=== PATIENT | male | born 1985 | race Caucasian/White ===

== ENCOUNTER 2024-07-29 15:17 | Emergency (ER) | payer SELFPAY ==
--- NOTE | 2024-07-29 15:29 | ECG_ITS ---
Test Reason : HIGH BP Blood Pressure : / mmHG Vent. Rate : 072 BPM Atrial Rate : 072 BPM P-R Int : 138 ms QRS Dur : 082 ms QT Int : 372 ms P-R-T Axes : 058 068 045 degrees QTc Int : 407 ms Normal sinus rhythm with sinus arrhythmia Cannot rule out Anterior infarct , age undetermined Abnormal ECG No previous ECGs available Referred By: Conner Saunders Electronically Signed By:FERNANDEZ HUGHES
[2024-07-29 15:49] VITALS: BP 107/59; PULSE 75; RESP 16; TEMP 37.1; O2SAT 98; BMI 23.9
--- NOTE | 2024-07-29 15:49 | ED_ITS ---
HPI - General Adult General Chief complaint: General Medical Stated complaint: blood pressure issues, brain fog Time Seen by Provider: 07/29/24 16:37 Source: patient Mode of arrival: ambulatory Limitations: no limitations History of Present Illness ED Provider: Chiquis Sam PA-C HPI narrative: Patient is a 38 year old assigned male at with no reported medical history presenting to the emergency department today with brain fog and a headache. Patient states that over the last few days he has felt increased brain fog and bilateral latter day pain that is intermittent. Patient states he was concerned it was his blood pressure so he bought a blood pressure cuff to measure it at home. Patient states that his blood pressures have varied greatly at home. Patient states that he recently moved here from [place] and does not have a primary care provider. Patient denies any dizziness, lightheadedness, abdominal pain, nausea, vomiting, fever, chills, blurry vision, double vision, loss of vision, chest pain, difficulty breathing, shortness of breath, back pain, night sweats, pain with urination, increased urinary frequency, increased urinary urgency, blood in his urine or stool, syncope or a near syncopal episode, recent trauma or falls, bowel incontinence, bladder incontinence, or any other complaints at this time. Onset (ago): day(s) Exacerbating factors: none Associated symptoms: headaches Treatments prior to arrival: none Related Data Allergies Allergy/AdvReac Type Severity Reaction Status Date / Time amoxicillin Allergy Unknown Verified 07/29/24 15:53 Review of Systems 2 Constitutional: Constitutional: Reports no additional constitutional complaints, Denies chills, Denies fever(s), Reports headache(s) (bilateral temples - intermittent) and Denies night sweats Eyes: Eyes: Reports no additional eye complaints, Denies blurry vision, Denies change in vision, Denies diplopia, Denies eye discharge, Denies loss of vision and Denies eye pain ENT: Denies dizziness and Reports headache(s) (bilateral temples - intermittent) Cardiovascular: Cardiovascular: Reports no additional cardiovascular complaints, Denies chest pain, Denies lightheadedness, Denies Loss of Consciousness and Denies dyspnea Respiratory: Respiratory: Reports no additional respiratory complaints and Denies dyspnea Gastrointestinal: Gastrointestinal: Reports no additional gastrointestinal complaints, Denies abdominal pain, Denies melena, Denies hematochezia, Denies change in bowel habits and Denies change in stool character Genitourinary: Genitourinary: Reports no additional male genitourinary complaints, Denies hematuria, Denies oliguria, Denies difficulty urinating, Denies dysuria, Denies urinary frequency, Denies urinary hesitancy, Denies urinary incontinence and Denies urinary urgency Musculoskeletal: Musculoskeletal: Reports no additional musculoskeletal complaints, Denies numbness and Denies tingling Neurologic: Denies dizziness, Reports headache(s) (bilateral temples - intermittent), Denies loss of vision, Denies numbness and Denies tingling Psychiatric: Psychiatric: Reports no additional psychiatric complaints Endocrine: Endocrine: Reports no additional endocrine complaints Hematologic/Lymphatic: Hematologic/Lymphatic: Reports no additional hematologic/lymphatic complaints Allergic/Immunologic: Allergic/Immunologic: Reports no additional allergic/immunologic complaints PMFSH Past Medical History Attestation statement: The following information was validated with the patient. Source: old records reviewed and nursing notes reviewed Social History Social History Advance Directives: No Advance Directives Information Provided: No Physical Exam ED Vital Signs: Vital Signs - 24 hr 07/29/24 15:49 07/29/24 17:11 Temperature 98.7 F 98.1 F Pulse Rate 75 79 Respiratory Rate 16 18 Blood Pressure 107/59 L 116/78 Pulse Oximetry 98 98 Oxygen Delivery Method Room Air Room Air BMI result Body Mass Index 23.9 Const General: cooperative, no acute distress, alert and awake Nutritional Appearance: well nourished Orientation/consciousness: patient oriented x3 Limitations: no limitations [facility] Head: Yes normal to inspection and Yes atraumatic Ears: hearing grossly normal bilaterally and external ears normal General nose exam: Normal external nose present, no nasal discharge noted and no epistaxis Face and sinus: Yes normal facial exam, No abrasion and No laceration Mouth: Normal oral and palatal mucosa present, no drooling and no muffled voice Eyes General: appearance normal, both eyes and all related structures Periorbital: periorbital findings normal Eyelids: Yes eyelids normal Conjunctivae: conjunctivae normal Pupils: Equal, round and reactive pupils present EOM: EOMs intact bilaterally Neck Neck: Yes normal visual inspection, Yes full ROM and Yes no lymphadenopathy Chest Chest palpation & inspection: normal inspection of the chest Resp Effort & Inspection: normal respiratory effort and able to speak in complete sentences GI Inspection: Yes normal to inspection Neuro General: patient oriented x3 and moves all extremities Cranial nerves: Yes Equal, round and reactive pupils present Cognition (Neuro): normal cognition Extrem General: Yes normal to inspection, Yes full ROM and Yes capillary refill normal Psych Appearance: grossly normal Mental Status: mental status grossly normal Affect: normal affect Attitude: cooperative Thought process: Normal thought process present Thought content: Normal thought content present Insight: Good insight present (Psych) Course Course Course Narrative: This is an RME done by VICENTE Saunders: Additional HPI, ROS, PE not included below will be deferred to primary provider. 38yo M presenting after a few days of feeling off with BORGES. Recently diagnosed with low testosterone and has begun taking testosterone. SBPs up to 130-140s. Denies smoking nicotine, endorses cannabis use. Infrequent alcohol use. Denies fevers, chills, cough, SOB, N/V, CP, SOB. Appearance: Alert.? Oriented X3.? No acute cardiopulmonary distress distress.? Head: Normocephalic, atraumatic CVS: Pulses normal.?BP 107/59 Respiratory: No respiratory distress.? Skin: ? Normal skin color. Neuro: Oriented X 3.? Medical Decision Making Medical Decision Making [facility] Narrative: Patient is a 38 year old assigned male at with no reported medical history presenting to the emergency department today with intermittent latter day headaches and brain fog. Patient's physical exam was unremarkable. Patient's blood work was unremarkable. Patient's EKG was unremarkable. I explained my physical exam findings as well as all test results to the patient. I answered all questions asked by the patient. I stressed the importance of the patient taking his medication as directed (either prescribed or as the over the counter packaging recommends). I stressed the importance of the patient following up with his primary care provider. I stressed the importance of the patient returning to the emergency department immediately if his symptoms were to worsen or if he were to develop any dizziness, shortness of breath, difficulty breathing, chest pain, blurry vision, loss of vision, nausea, vomiting, abdominal pain, fever, chills, back pain, or any other complaints. Patient verbalized agreement and understanding with this treatment plan and discharge. Differential Diagnosis Differential Diagnoses: The differential diagnosis associated with the presentation includes HTN COVID-19 Viral illness Anxiety Cluster headache Tension headache Admission/Observation Consideration of admission/observation: Escalation of care including admission/observation considered Patient would have been admitted to the hospital had his work up had any findings where hospital admission was appropriate and his clinical presentation warranted hospital admission. Lab Data [facility] Lab Attestation statement: I reviewed the patient's lab results. My interpretation of these results are in the [facility] Rationale portion of this note. 07/29/24 15:49 07/29/24 15:49 Labs: Lab Results 07/29/24 07/29/24 Range/Units 15:49 16:36 WBC 6.9 (4.8-10.8) X10*3/uL RBC 4.99 (4.60-5.80) X10*6/uL Hgb 15.2 (14.0-18.0) g/dl Hct 44.1 (42.0-52.0) % MCV 88.4 (80.0-98.0) fL MCH 30.5 (27.0-33.0) pg MCHC 34.5 (31.0-36.0) g/dl RDW 13.1 (11.0-16.0) % Plt Count 215 (160-400) X10*3/uL MPV 9.3 L (9.4-12.4) fL Immature Gran % (Auto) 0.4 (0.0-0.4) % Neut % (Auto) 57.2 (45-73) % Lymph % (Auto) 26.5 (20-40) % [place] % (Auto) 13.3 H (2-11) % Eos % (Auto) 1.7 (0-4) % Baso % (Auto) 0.9 (0-2) % Lymph # (Auto) 1.8 (1.2-4.9) X10*3/uL [place] # (Auto) 0.9 (0.1-1.2) X10*3/uL Eos # (Auto) 0.1 (0.0-0.4) X10*3/uL Baso # (Auto) 0.1 (0.0-0.2) X10*3/uL Abs Immat Gran (auto) 0.03 (0.00-0.03) X10*3/uL Absolute Neuts (auto) 4.0 (2.0-8.3) x10*3/uL Absolute Nucleated RBC 0.000 (0.0-0.012) X10*3/uL Nucleated RBC % (auto) 0.0 (0.0-0.2) /100WBC PT 11.3 (11.1-13.3) SEC INR 0.9 (0.9-1.1) Sodium 142 (135-145) mmol/L Potassium 4.1 (3.3-5.1) mmol/L Chloride 107 (96-108) mmol/L Carbon Dioxide 31 H (22-29) mmol/L Anion Gap 8 L (12-20) BUN 10 (9-16) mg/dL Creatinine 0.75 (0.5-1.4) mg/dL Estim Creat Clear Calc 123.6 Estimated GFR > 60 Random Glucose 98 (60-115) mg/dL Calcium 9.3 (8.4-10.2) mg/dL Magnesium 1.9 (1.6-2.6) mg/dL Total Bilirubin 0.4 (0.0-1.0) mg/dL AST 37 (5-37) U/L ALT 77 H (0-40) U/L Alkaline Phosphatase 39 (39-117) U/L Troponin I High Sens < 2.7 (<3.5-35.0) ng/L Total Protein 6.5 (6.5-8.0) g/dL Albumin 4.1 (3.5-5.0) g/dL TSH 1.35 (0.32-4.0) uIU/mL COVID-19 (ALLEN) Negative (Negative) COVID-19 Clin Com See Note Independent Interpretation I performed an independent interpretation of an: EKG Interpretation: Vent. Rate: 072 BPM Atrial Rate: 072 BPM P-R Int: 138 ms QRS Dur: 082 ms QT Int: 372 ms P-R-T Axes: 058 068 045 degrees QTc Int: 407 ms Normal sinus rhythm with sinus arrhythmia No previous ECGs available DD/ Discharge Plan Discharge Clinical Impression: Brain fog, Headache Patient Disposition: Home, Self-Care Instructions: Acute Headache (DC) Additional Instructions: Follow up with your primary care provider. Return to the emergency department immediately if your symptoms worsen or if you develop any dizziness, shortness of breath, difficulty breathing, chest pain, blurry vision, loss of vision, nausea, vomiting, abdominal pain, fever, chills, back pain, or any other complaints. Referrals: [facility] [Provider Group] (Call to establish and follow up with a primary care provider. If you already have a primary care provider, please follow up with them.) [facility], [place] [Provider Group] (Call to establish and follow up with a primary care provider. If you already have a primary care provider, please follow up with them.) [facility] [Provider Group] (Call to establish and follow up with a primary care provider. If you already have a primary care provider, please follow up with them.) Interventions: ED Discharge Assessment Last Done: 07/29/24 17:11 Discharge Date/Time: 07/29/24 17:15 Print Language: [place]
[2024-07-29 15:53] LABS: MANUAL DIFF FLAG NO
[2024-07-29 15:55] LABS: Basophils Absolute Auto 0.1 X10*3/uL (0.0-0.2); Basophils Percent Auto 0.9 % (0-2); Eosinophils Absolute Auto 0.1 X10*3/uL (0.0-0.4); Eosinophils Percent Auto 1.7 % (0-4); Hematocrit 44.1 % (42.0-52.0); Hemoglobin 15.2 g/dl (14.0-18.0); Imm Gran Abs Auto 0.03 X10*3/uL (0.00-0.03); Imm Gran Pct Auto 0.4 % (0.0-0.4); Lymphocytes Absolute Auto 1.8 X10*3/uL (1.2-4.9); Lymphocytes Percent Auto 26.5 % (20-40); Mean Corpuscular HGB Conc 34.5 g/dl (31.0-36.0); Mean Corpuscular Hemoglobin 30.5 pg (27.0-33.0); Mean Corpuscular Volume 88.4 fL (80.0-98.0); Mean Platelet Volume 9.3 fL (9.4-12.4); Monocytes Absolute Auto 0.9 X10*3/uL (0.1-1.2); Monocytes Percent Auto 13.3 % (2-11); Neutrophils Percent Auto 57.2 % (45-73); Platelet Count 215 X10*3/uL (160-400); Red Blood Count 4.99 X10*6/uL (4.60-5.80); Red Cell Distribution Width 13.1 % (11.0-16.0); White Blood Count 6.9 X10*3/uL (4.8-10.8)
[2024-07-29 16:00] LABS: INTERNATIONAL NORM RATIO 0.9 (0.9-1.1); Prothrombin Time 11.3 SEC (11.1-13.3)
[2024-07-29 16:15] LABS: Alanine Aminotransferase 77 U/L (0-40); Albumin Level 4.1 g/dL (3.5-5.0); Alkaline Phosphatase 39 U/L (39-117); Anion Gap 8 (12-20); Aspartate Amino Transferase 37 U/L (5-37); Bilirubin Total 0.4 mg/dL (0.0-1.0); Blood Urea Nitrogen 10 mg/dL (9-16); Calcium 9.3 mg/dL (8.4-10.2); Carbon Dioxide 31 mmol/L (22-29); Chloride 107 mmol/L (96-108); Creatinine Clr Calc Pharmacy 123.6; Estimated Glomerular Filt Rate > 60; Glucose Random 98 mg/dL (60-115); Magnesium 1.9 mg/dL (1.6-2.6); Potassium 4.1 mmol/L (3.3-5.1); Sodium 142 mmol/L (135-145); Total Protein 6.5 g/dL (6.5-8.0)
[2024-07-29 16:21] LABS: Troponin-I High Sensitivity < 2.7 ng/L (<3.5-35.0)
[2024-07-29 16:31] LABS: TSH reflex Free T4 1.35 uIU/mL (0.32-4.0)
[2024-07-29 17:00] LABS: COVID-19 Test Negative (Negative); IDNOW Serial# 08D9AD1C
[2024-07-29 17:11] VITALS: BP 116/78; PULSE 79; RESP 18; TEMP 36.7; O2SAT 98
== END 2024-07-29 17:15 | disposition home or self-care (01) ==
PROVIDERS: Physician Assistant; Emergency Provider Emergency Medicine
DX: R51.9 Headache, unspecified (principal); R41.9 Unspecified symptoms and signs involving cognitive functions and awareness; I10 Essential (primary) hypertension
CPT/HCPCS: 36415; 80053; 83735; 84443; 84484; 85025; 85610; 87635; 93005; 99283

== ENCOUNTER 2024-11-27 15:05 | Outpatient (AMB) | payer BC, SELFPAY ==
--- NOTE | 2024-11-27 15:08 | MHC.OFFVIS ---
Intake Visit Reasons: vasectomy consultation Intake Note: Patient is present for VASECTOMY CONSULTATION Urology Medication:SILDENAFIL Antibiotic Allergy:AMOXICILLIN Blood Thinner:NONE [employer] Required: No Allergies amoxicillin Allergy (Verified 11/27/24 15:10) Unknown HPI Comments Details: Duke is a very pleasant male. He is a patient of . He is seen for the following urologic condition - anxiety about health - Vasectomy evaluation Vasectomy evaluation The patient presents for vasectomy consultation. He is currently engaged - partner has 2 children from a prior relationship He has fathered - 0 child, with a none partner. His partner is aware and permissive for a vasectomy Current form of control is barrier. Currently works as nasal defense contractor imaging The vasectomy may be complicated due to a history of no complicating issues, inguinal hernia repair, orchidopexy, history of orchitis, orchiectomy. Patient education has been provided via [facility]UA video, via printed information, risks of failure, recovery time, bruising and potential pain syndrome have been stressed Discussion today focused on the presence of vasectomy and the risks, benefits and alternatives that are available. Vasectomy as intended as a permanent form of control. Printed information and literature was provided to the patient. Overall there is a one in 2500 failure rate. This can occur at any time after vasectomy. Risks were discussed highlighting hematoma, spermatocele, epididymal congestion, development of sperm antibodies, and development of chronic pain estimated between 1-5%. The procedure was reviewed in detail. Anatomical diagrams of the male genitalia were used to explain the location of the vas deferens. The vas deferens will be transected, the proximal end will be cauterized, a metal clip would be applied to separate the 2 vas deferens ends. It was explained the procedure will be done in the office and takes approximately 10-15 minutes. Less common problems that arise with vasectomy include hematoma, bleeding, allergic reaction to anesthetic, epididymal infection, epididymal congestion, scrotal discomfort, spermatic leak, spermatic granuloma and the possibility of antisperm antibodies. He understands these risks and wishes to proceed. Consent was signed at the office today. He also understands that it takes 12 weeks for sperm to fully clear the system. He will need to provide a semen sample at 12 weeks and if this is not clear a 2nd sample at 16 weeks. Medical clearance to stop using protection will only be provided if he satisfies published criteria for sperm clearance. [facility] Medical History (Updated 11/27/24 @ 15:54 by Rad Sanchez MD) Erectile dysfunction Primary insomnia Review of Systems Const Denies chills and Denies fever(s) Card Reports no additional complaints and Denies syncope Resp Denies cough GI Denies abdominal pain and Denies heartburn Reports as per HPI and Denies change in libido Neuro Denies syncope Psych Denies change in libido Endo Denies change in libido Physical Exam Const General: cooperative, healthy appearing, comfortable and no acute distress Orientation/consciousness: patient oriented x3 HEENT Face and sinus: Yes normal facial exam Mouth: moist mucous membranes Neck Neck: Yes normal visual inspection, Yes full ROM and Yes trachea midline Chest Chest palpation & inspection: normal inspection of the chest Resp Effort & Inspection: normal respiratory effort, able to speak in complete sentences and no respiratory distress GI Inspection: Yes normal to inspection Back/Spine/Pelvis Cervical Spine: normal cervical lordosis Thoracic/Lumbar Spine: thoracic and lumbar spine normal to inspection Skin General skin exam: no rashes or lesions noted Neuro General: patient oriented x3, gait normal, tone normal and moves all extremities Extrem General: Yes normal to inspection and Yes capillary refill normal Assessment & Plan Assessment & Plan (1) Anxiety about health: Code(s): R45.89 - Other symptoms and signs involving emotional state Category: Medical Plan Plan vasectomy Medications: New diazepam Take medication after arrival at office 2 mg PO BID PRN 2 tabs 0RF anxiety 1 day R45.89 - Other symptoms and signs involving emotional state tramadol 50 mg PO Q8H PRN 7 tabs 0RF pain N43.3 - Hydrocele, unspecified, R45.89 - Other symptoms and signs involving emotional state Patient Instructions: Imaging studies, laboratory and physical exam results were discussed and reviewed in detail. No major barriers to patient understanding were identified. An opportunity to ask questions regarding the treatment plan was provided. All questions were answered. The patient expressed understanding and agreement with the above treatment plan. The patient is aware they should contact our office by phone for worsening of their current condition or the appearance of new urologic symptoms. Compliance is encouraged with any medications and followup testing that is ordered. It is a privilege to participate in the urologic care of your patient. If you have any questions or concerns regarding treatment for the above conditions, or other urologic issues, please do not hesitate to contact me. The office telephone contact is [phone]. This note is constructed using voice recognition software. While every effort has been made to ensure accuracy second helper errors may have been included. Yours sincerely, Dr Rad Sanchez MD, [facility] - Urology Providers of Expert, Compassionate Care for the Genitourinary System Coding Level of Care Code New Pt Level 4 (66720) Diagnoses Anxiety about health R45.36
== END 2024-11-27 16:01 | disposition home or self-care (01) ==
PROVIDERS: Visit Provider Urology
DX: R45.89 Other symptoms and signs involving emotional state (principal)
CPT/HCPCS: 99204

== ENCOUNTER → 2024-11-27 15:05 | Outpatient (BNVA) | payer BC, SELFPAY | PROVIDERS: Visit Provider Urology ==

== ENCOUNTER 2025-05-13 13:33 | Outpatient (AMB) | payer BC, SELFPAY ==
--- NOTE | 2025-05-13 13:39 | A.OFFPC_ITS ---
Vital Signs 05/13/25 13:44 Height 5 ft 6.54 in Weight 170 lb 2 oz BMI 27.0 BP 110/76 Blood Pressure Location Lt brachial Position Sitting Pulse 66 Pulse Source Pulse Oximeter Temp 97.1 F Temp Source Temporal Artery Scan Pulse Oximetry (%) 99 Oxygen Delivery Method Room Air Intake Visit Reasons: establish care Intake Note: Patient is a new patient here to establish care for Insomnia, Testosterone issues. [facility] Medical records have been requested and have not received. Bulldogger Required: No Linen Supervisor: Not Required per policy Accompanied by: Self / Same As Patient Allergies amoxicillin Allergy (Verified 05/13/25 14:00) Unknown Medication List - Last Reconciled 05/13/25 by Amelia Chi PA-C cetirizine (All Day Allergy (cetirizine)) 10 mg PO DAILY PRN lorazepam 2 mg PO BEDTIME PRN testosterone cypionate 50 mg IM QWEEK Tobacco use date assessed: 05/13/25 Dental Screening Dental Screen Date: 05/13/25 Did you have a dental visit in the last 12 months?: Yes Did you have a dental problem in the last 6 months where you did not have access to dental care?: No Was dental information given to patient?: Patient has dentist HPI establish care HPI Details 39 year old male coming to the office fo r the first time. In review of the notes, patient is working with urology for vasectomy. Presenting for the establishment of care and management of chronic conditions. The patient uses Trimix occasionally for mild symptoms, administering approximately one unit weekly with a diabetic syringe. He initially started with five units, which was too strong, and adjusted to one unit, which he finds effective. The patient has a history of insomnia and uses lorazepam daily before bed, prescribed by his previous primary care physician. He reports achieving about six to six and a half hours of sleep per night, which he finds sufficient. The patient experiences seasonal allergies, exacerbated by changes in weather, and uses [id number] Zyrtec for relief. [facility] Medical History Erectile dysfunction Primary insomnia Surgical History No pertinent past surgical history Social History Housing: Condominium Alcohol intake: current Alcohol intake frequency: a few times a week Patient Tobacco Use Status: Current someday Tobacco user (powches) e-Cigarette/Vaping Use: Never Used Second Hand Smoke Exposure: No service: No Current occupational status: employed Cognitive needs: No Hearing needs: No Vision needs: No Questionnaire PHQ-9 Over the last 2 weeks, how often have you been bothered by any of the following problems? 1. Little interest or pleasure in doing things: not at all 2. Feeling down, depressed, or hopeless: not at all 3. Trouble falling or staying asleep, or sleeping too much: not at all 4. Feeling tired or having little energy: not at all 5. Poor appetite or overeating: not at all 6. Feeling bad about yourself - or that you are a failure or have let yourself or your family down: not at all 7. Trouble concentrating on things, such as reading the newspaper or watching television: not at all 8. Moving or speaking so slowly that other people could have noticed. Or the opposite - being so fidgety or restless that you have been moving around a lot more than usual: not at all 9. Thoughts that you would be better off or of hurting yourself in some way: not at all Total score: 0 Depression Screening Interpretation: Negative Depression Screening Done: Yes 50224 - PHQ-9 Billing: Yes Source: Developed by Drs. Pedro Ann, Chen Carter, Cal Lincoln and colleagues, with an educational katie from [employer]. Thrive Questionnaire Date Thrive assessed: 05/06/25 I am a: Patient What is your living situation today?: I have a steady place to live Within the past 12 months, did the food you bought not last and you didn't have the money to get more?: Never true Within the past 12 months, did you worry whether your food would run out before you got money to buy more?: Never true Do you have trouble paying for medicines?: No Do you have trouble getting transportation to medical appointments?: No Do you have trouble paying your heating and electricity bill?: No Do you have trouble taking care of your child, family member or friend?: No Do you have trouble with day-to-day activities such as bathing, preparing meals, shopping, managing finances, etc.?: No Are you currently unemployed and looking for a job?: No Are you interested in more education?: No Please select the resources that you would like help with: None Currently or been in a relationship where the following occur: No concerns reported THRIVE Score: 0 AUDIT C Alcohol Use Questionnaire (AUDIT-C) 1. How often do you have a drink containing alcohol?: Monthly or less 2. How many drinks containing alcohol do you have on a typical day when you are drinking?: 1 or 2 Total Score: 1 DIANA-7 AMB Questionnaire DIANA-7 Date DIANA - 7 assessed: 05/13/25 Feeling nervous, anxious, or on edge: 0 = Not at all Not being able to stop or control worryin = Not at all Worrying too much about different things: 0 = Not at all Trouble relaxin = Not at all Being so restless that it is hard to sit still: 0 = Not at all Becoming easily annoyed or irritable: 0 = Not at all Feeling afraid as if something awful might happen: 0 = Not at all Total DIANA-7 score (0-4 normal; 5-9 mild; 10-14 moderate; 15-21 severe): 0 Source: Developed by Drs. Pedro Ann, Chen Carter, Cal Lincoln and colleagues, with an educational katie from [employer]. DIANA-7 Assessment Billing DIANA-7 Assessment Tool: DIANA-7 Assessment 57179 Review of Systems Const Denies body aches, Denies chills, Denies fever(s), Denies headache(s) and Denies poor appetite Eyes Reports no additional complaints ENT Denies dysphagia, Denies dizziness, Denies headache(s) and Denies odynophagia Card Denies chest pain, Denies syncope, Denies edema, Denies irregular heart rhythm, Denies lightheadedness and Denies dyspnea Resp Denies cough and Denies dyspnea GI Denies abdominal pain, Denies constipation, Denies dysphagia, Denies diarrhea, Denies nausea, Denies odynophagia and Denies vomiting Details: no pain with urination Reports no additional complaints Musc Reports no additional complaints and Denies abnormal gait Skin/Breast Reports system reviewed and no additional complaints, except as documented Neuro Denies abnormal gait, Denies dizziness, Denies syncope and Denies headache(s) Psych Reports no additional complaints Physical exam (Primary Care) Vital Signs: Last Vital Signs Temp 97.1 F 05/13/25 13:44 Pulse 66 05/13/25 13:44 BP 110/76 05/13/25 13:44 Pulse Ox 99 05/13/25 13:44 Oxygen Delivery Method Room Air 05/13/25 13:44 BMI result Body Mass Index 27.0 Tobacco/Smoking Status: Tobacco use Status Tobacco use date assessed 05/13/25 05/13/25 13:50 Patient Tobacco Use Status Current someday Tobacco ( 05/13/25 13:58 powches) e-Cigarette/Vaping Use Never Used 05/13/25 13:57 PHQ-9: PHQ-9 Score PHQ-9: Total score 0 05/13/25 13:51 Depression Screening Interpretation: Negative Thrive Assessment: Date of Thrive Assessment Date Thrive assessed 05/06/25 05/13/25 13:41 Currently or been in a relationship where the following occur: No concerns reported Const General: cooperative, healthy appearing, comfortable and no acute distress Orientation/consciousness: patient oriented x3 HENMT Head: Yes normocephalic Ears: hearing grossly normal bilaterally General nose exam: Normal external nose present Eyes General: appearance normal, both eyes and all related structures Conjunctivae: conjunctivae normal Neck Neck: Yes full ROM and Yes no lymphadenopathy Resp Effort & Inspection: normal respiratory effort Auscultation: clear to auscultation bilaterally, no crackles, no rales, no rhonchi and no wheezes Cardio Rate: regular rate Rhythm: regular rhythm Skin General skin exam: no rashes or lesions noted Neuro General: patient oriented x3 Gait exam (Neuro): Normal gait present Extrem General: Yes normal to inspection, Yes full ROM and No edema Psych Affect: normal affect Attitude: cooperative Insight: Good insight present (Psych) Judgement: Good judgement present (Psych) Coding Level of Care Code New Pt Level 3 (68584) Diagnoses Erectile dysfunction N52.9 Primary insomnia F51.01 Screening for hypercholesterolemia Z13.220 Additional Codes DIANA-7 Assessment Billing - DIANA-7 Assessment Tool: DIANA-7 Assessment 96580 ([id number]) PHQ-9 - 38383 - PHQ-9 Billing: Yes ([id number]) Assessment & Plan Assessment & Plan (1) Erectile dysfunction: Comment: [facility] Code(s): N52.9 - Male erectile dysfunction, unspecified Category: Medical Plan: Continue to follow with clinic and continue with testosterone replacement. (2) Primary insomnia: Code(s): F51.01 - Primary insomnia Category: Medical Plan: He has tried other medications in the past such as ambien and melatonin which he did not find effective or had side effects with these medications. Continue on Lorazepam at this time. Advised patient he will need to be seen every 3 months while on this medication. (3) Screening for hypercholesterolemia: Code(s): Z13.220 - Encounter for screening for lipoid disorders Category: Medical Plan: Blood work ordered. Plan Patient does report having blood work done routinely through [facility] and will bring these labs to next visit. The patient will continue using Trimix for erectile dysfunction as needed, with the current dosage of one unit weekly being effective. Lorazepam will be continued for insomnia, with a follow- up appointment scheduled in three months to monitor its efficacy and any potential side effects. The patient is advised to maintain his current exercise regimen and healthy lifestyle to support overall well-being. An annual physical examination is planned to include screenings for colonoscopy and prostate health, with specific attention to any additional blood work that may be required. The patient is encouraged to obtain records of previous blood work from [facility] to ensure comprehensive evaluation during the next visit. This note was constructed using voice recognition software. While every effort has been made to ensure accuracy and patient financial advocate, still areas may have been included sometimes these areas may affect the content or meeting of the given symptoms. Total time spent caring for the patient today was 30 minutes. This includes time spent before the visit reviewing the chart, time spent during the visit, and time spent after the visit and documentation. Patient was informed and verbally consented to the use of an ambient scribe for clinic note documentation during this visit. Orders: Orders Vitamin D 25-OH Total Today F51.01 - Primary insomnia, Z00.00 - Encounter for general adult medical examination without abnormal findings TSH reflex Free T4 Today F51.01 - Primary insomnia, Z00.00 - Encounter for general adult medical examination without abnormal findings Vitamin B12 and Folate Today F51.01 - Primary insomnia, Z13.21 - Encounter for screening for nutritional disorder Comprehensive Met. Panel Today F51.01 - Primary insomnia, Z00.00 - Encounter for general adult medical examination without abnormal findings Complete Blood Count Auto Diff Today F51.01 - Primary insomnia, Z00.00 - Encounter for general adult medical examination without abnormal findings Lipid Panel Today Z00.00 - Encounter for general adult medical examination without abnormal findings, Z13.220 - Encounter for screening for lipoid disorders
[2025-05-13 13:44] VITALS: BP 110/76; PULSE 66; TEMP 36.2; O2SAT 99; BMI 27.0
== END 2025-05-13 14:25 | disposition home or self-care (01) ==
LOC: HO.HMCH 13:33
DX: N52.9 Male erectile dysfunction, unspecified (principal); F51.01 Primary insomnia; Z13.220 Encounter for screening for lipoid disorders

== ENCOUNTER → 2025-05-13 13:33 | Outpatient (BNVA) | payer BC, SELFPAY | DX: F51.01 Primary insomnia (principal); N52.9 Male erectile dysfunction, unspecified | CPT/HCPCS: 96127 ==

== ENCOUNTER 2025-09-24 14:51 | Outpatient (AMB) | payer BC, SELFPAY ==
[2025-09-24 14:59] VITALS: BP 120/90; PULSE 64; TEMP 36.3; O2SAT 98; BMI 27.0
--- NOTE | 2025-09-24 14:59 | MHC.PC.OV ---
Vital Signs 09/24/25 14:59 09/24/25 15:25 Height 5 ft 6.4 in Weight 169 lb 8 oz BMI 27.0 BP 120/90 H 128/92 H Blood Pressure Location Lt brachial Lt brachial Position Sitting Sitting Pulse 64 Pulse Source Pulse Oximeter Temp 97.3 F Temp Source Temporal Artery Scan Pulse Oximetry (%) 98 Oxygen Delivery Method Room Air Intake Visit Reasons: Annual pe Intake Note: Patient is a new patient here to establish care for Insomnia, Testosterone issues. [facility] Medical records have been requested and have not received. Director Of Recruitment And Admissions Required: No Glove Turner And Former Automatic: Not Required per policy Accompanied by: Self / Same As Patient Allergies amoxicillin Allergy (Verified 09/24/25 15:02) Unknown Medication List - Last Reconciled 09/24/25 by Amelia Chi PA-C amlodipine 5 mg PO DAILY cetirizine (All Day Allergy (cetirizine)) 10 mg PO DAILY PRN lorazepam 2 mg PO BEDTIME PRN testosterone cypionate 50 mg IM QWEEK Tobacco use date assessed: 09/24/25 Dental Screening Dental Screen Date: 05/13/25 Did you have a dental visit in the last 12 months?: Yes Did you have a dental problem in the last 6 months where you did not have access to dental care?: No Was dental information given to patient?: Patient has dentist HPI Annual pe HPI Details 39 year old male with past medical history of ED and insomnia last seen 04/2025 coming in for annual exam. Presenting for follow-up of hypertension, lab review, and chest pain. Regarding his hypertension, he was recently started on amlodipine after an urgent care visit for lightheadedness. He reports feeling calmer and better within a day of starting the medication. Contributing factors discussed include a family history of hypertension, a past habit of consuming high-sodium hydration drinks which he has since stopped, and potentially high testosterone levels. PSA: 08/2025 normal vaccines: believes he is [facility] Medical History Erectile dysfunction Primary insomnia Surgical History No pertinent past surgical history Social History Housing: Condominium Alcohol intake: current Alcohol intake frequency: a few times a week Patient Tobacco Use Status: Current someday Tobacco user (powches) e-Cigarette/Vaping Use: Never Used Second Hand Smoke Exposure: No service: No Current occupational status: employed Cognitive needs: No Hearing needs: No Vision needs: No Questionnaire PHQ-9 Over the last 2 weeks, how often have you been bothered by any of the following problems? 1. Little interest or pleasure in doing things: not at all 2. Feeling down, depressed, or hopeless: not at all 3. Trouble falling or staying asleep, or sleeping too much: not at all 4. Feeling tired or having little energy: not at all 5. Poor appetite or overeating: not at all 6. Feeling bad about yourself - or that you are a failure or have let yourself or your family down: not at all 7. Trouble concentrating on things, such as reading the newspaper or watching television: not at all 8. Moving or speaking so slowly that other people could have noticed. Or the opposite - being so fidgety or restless that you have been moving around a lot more than usual: not at all 9. Thoughts that you would be better off or of hurting yourself in some way: not at all Total score: 0 Depression Screening Interpretation: Negative Depression Screening Done: Yes Source: Developed by Drs. Pedro Ann, Chen Carter, Cal Lincoln and colleagues, with an educational katie from [employer]. Thrive Questionnaire Date Thrive assessed: 05/06/25 I am a: Patient What is your living situation today?: I have a steady place to live Within the past 12 months, did the food you bought not last and you didn't have the money to get more?: Never true Within the past 12 months, did you worry whether your food would run out before you got money to buy more?: Never true Do you have trouble paying for medicines?: No Do you have trouble getting transportation to medical appointments?: No Do you have trouble paying your heating and electricity bill?: No Do you have trouble taking care of your child, family member or friend?: No Do you have trouble with day-to-day activities such as bathing, preparing meals, shopping, managing finances, etc.?: No Are you currently unemployed and looking for a job?: No Are you interested in more education?: No Please select the resources that you would like help with: None Currently or been in a relationship where the following occur: No concerns reported THRIVE Score: 0 AUDIT C Alcohol Use Questionnaire (AUDIT-C) 1. How often do you have a drink containing alcohol?: Monthly or less 2. How many drinks containing alcohol do you have on a typical day when you are drinking?: 1 or 2 Total Score: 1 DAINA-7 AMB Questionnaire DIANA-7 Date DIANA - 7 assessed: 05/13/25 Feeling nervous, anxious, or on edge: 0 = Not at all Not being able to stop or control worryin = Not at all Worrying too much about different things: 0 = Not at all Trouble relaxin = Not at all Being so restless that it is hard to sit still: 0 = Not at all Becoming easily annoyed or irritable: 0 = Not at all Feeling afraid as if something awful might happen: 0 = Not at all Total DIANA-7 score (0-4 normal; 5-9 mild; 10-14 moderate; 15-21 severe): 0 Source: Developed by Drs. Pedro Ann, Chen Carter, Cal Lincoln and colleagues, with an educational katie from [employer]. Review of Systems Const Denies body aches, Denies fatigue, Denies fever(s), Denies frequent falls, Denies headache(s) and Denies weakness Eyes Reports no additional complaints and Denies change in vision ENT Denies dysphagia, Denies dizziness, Denies facial pain, Denies headache(s), Denies nasal congestion and Denies odynophagia Card Denies chest pain, Denies syncope, Denies irregular heart rhythm, Denies leg edema, Denies lightheadedness and Denies dyspnea Resp Denies cough and Denies dyspnea GI Denies constipation, Denies dysphagia, Denies dyspepsia, Denies diarrhea, Denies nausea, Denies odynophagia and Denies vomiting Denies dysuria, Denies urinary frequency, Denies urinary hesitancy and Denies urinary urgency Musc Denies back pain and Denies myalgias Skin/Breast Reports system reviewed and no additional complaints, except as documented Neuro Denies dizziness, Denies syncope, Denies frequent falls, Denies headache(s) and Denies weakness Psych Reports no additional complaints Endo Denies fatigue Physical exam (Primary Care) Vital Signs: Last Vital Signs Temp 97.3 F 09/24/25 14:59 Pulse 64 09/24/25 14:59 BP 128/92 H 09/24/25 15:25 Pulse Ox 98 09/24/25 14:59 Oxygen Delivery Method Room Air 09/24/25 14:59 BMI result Body Mass Index 27.0 Tobacco/Smoking Status: Tobacco use Status Tobacco use date assessed 09/24/25 09/24/25 15:00 Patient Tobacco Use Status Current someday Tobacco ( 09/24/25 15:00 trish) e-Cigarette/Vaping Use Never Used 09/24/25 15:00 PHQ-9: PHQ-9 Score PHQ-9: Total score 0 09/24/25 15:08 Depression Screening Interpretation: Negative Thrive Assessment: Date of Thrive Assessment Date Thrive assessed 05/06/25 09/24/25 15:00 Currently or been in a relationship where the following occur: No concerns reported Const General: cooperative, healthy appearing, comfortable and no acute distress Orientation/consciousness: patient oriented x3 HENMT Head: Yes normocephalic Ears: hearing grossly normal bilaterally, external ears normal, TM's normal bilaterally and EAC's normal General nose exam: Normal external nose present Face and sinus: Yes normal facial exam and Yes sinuses nontender Mouth: Normal oral and palatal mucosa present and tongue normal Throat: Yes posterior oropharynx normal Eyes General: appearance normal, both eyes and all related structures Conjunctivae: conjunctivae normal Pupils: Equal, round and reactive pupils present EOM: EOMs intact bilaterally and No Nystagmus present Neck Neck: Yes normal visual inspection, Yes full ROM and Yes no lymphadenopathy Chest Chest palpation & inspection: normal inspection of the chest Resp Effort & Inspection: normal respiratory effort Auscultation: clear to auscultation bilaterally, no crackles, no rales, no rhonchi, no wheezes and breath sounds present Cardio Rate: regular rate Rhythm: regular rhythm Peripheral pulses: radial pulses present and dorsalis pedis present GI Inspection: Yes normal to inspection and No Abdominal wall edema Palpation (GI): Soft to palpation, not firm and nontender Auscultation: normal bowel sounds Rectal Exam - Male: Yes deferred General: Yes no CVA tenderness Back/Spine/Pelvis Back: no CVA tenderness Skin General skin exam: no rashes or lesions noted Neuro General: patient oriented x3 Cranial nerves: Yes Equal, round and reactive pupils present, Yes Midline tongue present, Yes Ability to bilaterally elevate shoulders present and No Nystagmus present Gait exam (Neuro): Normal gait present Extrem General: Yes normal to inspection, Yes full ROM, No no pedal edema and No edema Psych Speech and movement: Normal speech and movement present Affect: normal affect Insight: Good insight present (Psych) Judgement: Good judgement present (Psych) Coding Level of Care Code Est Pt Prev Care 40-64y(52386) Diagnoses Annual physical exam Z00.00 Erectile dysfunction N52.9 Primary insomnia F51.01 Screening for hypercholesterolemia Z13.220 Hypertension I10 Assessment & Plan Assessment & Plan (1) Annual physical exam: Code(s): Z00.00 - Encounter for general adult medical examination without abnormal findings Category: Medical Plan: Patient is up-to-date on all recommended routine screenings and vaccinations for his age. I did remind the patient about blood work which he will have completed before next visit. Plan to follow up in 6 weeks or sooner as needed. Healthy diet and regular exercise is encouraged. (2) Erectile dysfunction: Comment: [facility] Code(s): N52.9 - Male erectile dysfunction, unspecified Category: Medical Plan: Continue to follow with clinic and continue with testosterone replacement. (3) Primary insomnia: Code(s): F51.01 - Primary insomnia Category: Medical Plan: He has tried other medications in the past such as ambien and melatonin which he did not find effective or had side effects with these medications. Continue on Lorazepam at this time. Advised patient he will need to be seen every 3 months while on this medication. (4) Screening for hypercholesterolemia: Code(s): Z13.220 - Encounter for screening for lipoid disorders Category: Medical Plan: Blood work ordered at last visit. (5) Hypertension: Code(s): I10 - Essential (primary) hypertension Category: Medical Plan: Continue on current blood pressure medication. Avoid salt intake and encourage healthy diet and regular exercise. Recently started on amlodipine by urgent care. Blood pressure is elevated in the office today 120/92. He will follow up in 1 week with the nurses for repeat blood pressure check with his home monitor and consider increase to amlodipine 10 mg. Plan This note was constructed using voice recognition software. While every effort has been made to ensure accuracy and coal trimmer machine operator, still areas may have been included sometimes these areas may affect the content or meeting of the given symptoms. Total time spent caring for the patient today was 30 minutes. This includes time spent before the visit reviewing the chart, time spent during the visit, and time spent after the visit and documentation. Patient was informed and verbally consented to the use of an ambient scribe for clinic note documentation during this visit. Medications: Discontinued lorazepam Take (1) One Tablet by Mouth at bedtime Discontinued Reason: Entered in error 2 mg PO BEDTIME PRN 30 tabs 0RF sleep
[2025-09-24 15:25] VITALS: BP 128/92
--- OUTSIDE RECORDS SUMMARY | 2025-09-24 16:15 | XMS_ITS | Encounter Summary ---
Author Organization [facility] Address [address] [place] [id number] Phone Care Team Providers Care Friction Welding Machine Operator Name Role Phone Pcp, Not Required Primary Care Provider Unavaila ble Encounter Details Date Type Department Care Team (Late st Contact Info) Description 06/12/2023 Procedure Pass [facility] CT Scan [address] [place] [address] Social History Tobacco Use Types Packs/Day Years Used Date Smoking Tobacco: Every Day Cigarettes Smokeless Tobacco: Current Alcohol Use Standard Drinks/Week Comments Yes 2 (1 standard drink = 0.6 oz pur e alcohol) Education Answer Date Recorded Are you interested in more education? Not on bro e 06/12/2023 Are you concerned about learning? Not on file 06/12/2023 No 06/12/2023 No 06/12/2023 Digital Access Answer Date Recorded No 06/12/2023 No 06/12/2023 Reliable internet access at home? Not on file 06/12/2023 Device with a working camera? Not on file Intimate Partner Violence Answer Date R ecorded Are you denied basic needs s uch as food, clothing, or medical care? No 06/12/2023 In the past 12 months have y ou been in a relationship with a person who hurts, threatens, or tries to control you? No 06/12/2023 Are you denied basic needs s uch as food, clothing, or medical care? No 06/12/2023 In the past 12 months have y ou been in a relationship with a person who hurts, threatens, or tries to control you? No 06/12/2023 Sex and Gender Information Value Date Recorded Sex Assigned at Male 06/12/2023 12:18 PM EDT Legal Sex Male 12:08 PM EDT Gender Identity Male 06/12/2023 12:18 PM EDT Sexual Orientation Straight 06/12/2023 12 :18 PM EDT documented as of this encounter Functional Status * Calculated C-SSRS Risk Score (Lifetime/Recent) Answer Date of Assessment Author No Risk Indicated 06/12/2023 12:19 PM EDT Chelsi Gabriel RN * [place] Suicide Severity Rating Scale (Screener/Recent Self-Report) Question Answer Date of Assessment Author 1. Wish to be (Past 1 Month) No 06/12/2023 12:19 PM EDT Rashida Gabriel RN 2. Non-Specific Active Suicidal Thoughts (Past 1 Month) No 06/12/2023 12:19 PM EDT Rashida Gabriel RN 6. Suicidal Behavior (Lifetime) No 06/12/2023 12:19 PM EDT Rashida Gabriel RN documented as of this encounter Plan of Treatment Not on file documented as of this encounter Visit Diagnoses Not on filedocumented in this encounter Care Teams Friction Welding Machine Operator Relationship Specialty Start Date End Date Pcp, Not Required [address] [place] [id number] PCP - General 06/12/23 documented as of this encounter Additional Source Comments The information contained in this document represents components of the legal health record. It is not the complete legal health record.[facility]
--- OUTSIDE RECORDS SUMMARY | 2025-09-24 16:15 | XMS_ITS ---
Author Name [facility] Organization Unknown History of Medication Use Medication Directions Dispensed Refills Start Date End Date Stat us amlodipine 08/01/2025 active lorazepam 07/16/2025 active Phenylephrine 1mg/ml Inj 06/09/2025 active Allergies Allergen Reaction Severity Comment Documented Date Source Statu s AMOXICILLIN HIVES ([id number]) mild allergy [facility]
--- OUTSIDE RECORDS SUMMARY | 2025-09-24 16:15 | XMS_ITS | Clinical Summary ---
Author Organization [facility] Address [address] [place] [phone] Phone Care Team Providers Care Psychology Intern Name Role Phone Pcp, Not Required Primary Care Provider Unavaila ble Allergies Active Allergy Reactions Criticality Noted Date Comments Penicillins Hives Medium 06/12/2023 Medications LORazepam (ATIVAN) 2 MG tablet Take 2 mg by mouth nightly at bedtime. Active sildenafiL (VIAGRA) 100 mg tablet Take 100 mg by mouth daily as needed for erectile dysfunction. Active aspirin 325 MG tabletIndicatio ns:acute coronary syndrome Take 325 mg by mouth daily. Indications: a sudden worsening of angina called acute coronary syndrome Active zolpidem (AMBIEN) 5 MG tablet Take 5 mg by mouth nightly at bedtime as needed for sleep. Active Active Problems Problem Noted Date Diagnosed Date Chest pain 06/12/2023 Social History Tobacco Use Types Packs/Day Years Used Date Smoking Tobacco: Every Day Cigarettes Smokeless Tobacco: Current Tobacco Cessation:Ready to Q uit: Not Asked; Counseling Given: Not Answered Alcohol Use Standard Drinks/Week Comments Yes 2 [...] Orientation Straight 06/12/2023 12 :18 PM EDT Last Filed Vital Signs Vital Sign Reading Time Taken Comments Blood Pressure 144/84 06/12/2023 6:05 PM EDT Pulse 98 06/12/2023 6:05 PM EDT Temperature 37.2 C (99 F) 06/12/2023 12:12 PM EDT Respiratory Rate 18 06/12/2023 6:05 PM EDT Oxygen Saturation 97% 06/12/2023 6:05 PM EDT Inhaled Oxygen Concentration - - Weight - - Height - - Body Mass Index - - Plan of Treatment Health Maintenance Due Date Last Done Comments Adult Td,Tdap Booster 1984 LIPID PANEL 1984 DEPRESSION SCREENING 1996 SMOKING Hx and SMOKELESS TOB ACCO SCREENING 1997 HEPATITIS C SCREENING 2002 HIV ONE-TIME SCREENING (18-6 5 YEARS) 2002 PNEUMOCOCCAL VACCINES (0-49 years) (1 of 2 - PCV) 2003 INFLUENZA VACCINE (#1) 2025 COVID-19 VACCINE (2024-2 6 season) 2025 HEPATITIS A VACCINES Aged Out No long er eligible based on patient's age to complete this topic HIB VACCINES Aged Out No longer eligi ble based on patient's age to complete this topic MENINGOCOCCAL VACCINES (ACWY) Aged Out No longer eligible based on patient's age to complete this topic MENINGOCOCCAL VACCINES (B) Aged Out N o longer eligible based on patient's age to complete this topic Medical Devices Not on file Care Teams Psychology Intern Relationship Specialty Start Date End Date Pcp, Not Required [address] [place] [id number] PCP - General 06/12/23 Additional Source Comments The information contained in this document represents components of the legal health record. It is not the complete legal health record.[facility]
== END 2025-09-24 15:40 | disposition home or self-care (01) ==
LOC: HO.HMCH 14:52
DX: Z00.00 Encounter for general adult medical examination without abnormal findings (principal); N52.9 Male erectile dysfunction, unspecified; F51.01 Primary insomnia; Z13.220 Encounter for screening for lipoid disorders; I10 Essential (primary) hypertension

== ENCOUNTER 2025-10-01 07:21 | Outpatient (REF) | payer BC, SELFPAY ==
--- OUTSIDE RECORDS SUMMARY | 2025-10-01 07:24 | XMS_ITS | Encounter Summary ---
Author Organization [facility] Address [address] [place] [phone] Phone Care Team Providers Care Cow Buyer Name Role Phone Pcp, Not Required Primary Care Provider Unavaila ble Encounter Details Date Type Department Care Team (Late st Contact Info) Description 06/12/[address] [facility] CT Scan [address] [place] [address] Social History Tobacco Use Types Packs/Day Years [...] 12:19 PM EDT Chelsi Gabriel RN * [place] Suicide Severity Rating Scale (Screener/Recent Self-Report) Question [...] on filedocumented in this encounter Care Teams Cow Buyer Relationship Specialty Start Date End Date Pcp, Not Required [address] [place] [phone] PCP - General 06/12/23 documented as of this encounter Additional Source Comments The information contained in this document represents components of the legal health record. It is not the complete legal health record.[facility]
--- OUTSIDE RECORDS SUMMARY | 2025-10-01 07:24 | XMS_ITS | Clinical Summary ---
Author Organization [facility] Address [address] [place] [phone] Phone Care Team Providers Care Mental Health Counselor Name Role Phone Pcp, Not Required Primary [...] 2003 INFLUENZA VACCINE (#1) 2025 COVID-19 VACCINE ( - 2024-2 6 season) 2025 HEPATITIS A VACCINES Aged Out No long er eligible based on patient's age to complete this topic HIB VACCINES Aged Out No longer eligi ble based on patient's age to complete this topic IPV VACCINES Aged Out No longer eligi ble based on patient's age to complete this topic MENINGOCOCCAL VACCINES (ACWY) Aged Out No longer eligible based on patient's age to complete this topic MENINGOCOCCAL VACCINES (B) Aged Out N o longer eligible based on patient's age to complete this topic Medical Devices Not on file Care Teams Mental Health Counselor Relationship Specialty Start Date End Date Pcp, Not Required [address] [place] [id number] PCP - General 06/12/23 Additional Source Comments The information contained in this document represents components of the legal health record. It is not the complete legal health record.[facility]
[2025-10-01 07:42] LABS: MANUAL DIFF FLAG NO
[2025-10-01 08:29] LABS: Hematocrit 49.0 % (42.0-52.0); Hemoglobin 16.2 g/dl (14.0-18.0); Imm Gran Abs Auto 0.02 X10*3/uL (0.00-0.03); Imm Gran Pct Auto 0.4 % (0.0-0.4); Lymphocytes Absolute Auto 1.7 X10*3/uL (1.2-4.9); Mean Corpuscular HGB Conc 33.1 g/dl (31.0-36.0); Mean Corpuscular Hemoglobin 29.9 pg (27.0-33.0); Mean Corpuscular Volume 90.6 fL (80.0-98.0); NRBC Abs Auto 0.000 X10*3/uL (0.0-0.012); NRBC Pct Auto 0.0 /100WBC (0.0-0.2); Platelet Count 200 X10*3/uL (160-400); Red Blood Count 5.41 X10*6/uL (4.60-5.80); White Blood Count 4.8 X10*3/uL (4.8-10.8)
[2025-10-01 09:23] LABS: Alanine Aminotransferase 43 U/L (0-40); Albumin Level 4.3 g/dL (3.5-5.0); Alkaline Phosphatase 49 U/L (39-117); Anion Gap 12 (12-20); Aspartate Amino Transferase 44 U/L (5-37); Blood Urea Nitrogen 11 mg/dL (9-16); Calcium 9.1 mg/dL (8.4-10.2); Carbon Dioxide 27 mmol/L (22-29); Chloride 104 mmol/L (96-108); Cholesterol 157 mg/dL (<200); Estimated Glomerular Filt Rate > 60; HDL Cholesterol 56 mg/dL (>40); Potassium 4.2 mmol/L (3.3-5.1); Sodium 139 mmol/L (135-145); Total Protein 6.9 g/dL (6.5-8.0); Triglycerides 58 mg/dL (<150)
[2025-10-01 09:49] LABS: Folate > 20.0 ng/mL (> or = 4.0); Vitamin B12 1205 pg/mL (200-900)
== END 2025-10-01 07:22 | disposition home or self-care (01) ==
LOC: HO.LAB 07:21
DX: Z01.30 Encounter for examination of blood pressure without abnormal findings (principal); Z00.00 Encounter for general adult medical examination without abnormal findings; F51.01 Primary insomnia; Z13.21 Encounter for screening for nutritional disorder; Z13.220 Encounter for screening for lipoid disorders; Z13.6 Encounter for screening for cardiovascular disorders; Z13.29 Encounter for screening for other suspected endocrine disorder
CPT/HCPCS: 36415; 80053; 80061; 82306; 82607; 82746; 84443; 85025; 99499